=== PATIENT | male | born 1985 | race African-American/Black ===

== ENCOUNTER 2017-01-21 15:48 | Emergency (ER) | payer OTHER ==
[~2017-01-21] VITALS: Ht 180.3 cm; Wt 93.1 kg
[2017-01-21 17:19] VITALS: BP 142/76; PULSE 82; RESP 18; TEMP 98.6; O2SAT 98
--- NOTE | 2017-01-21 17:24 | PD ---
HPI Chief Complaint: Psychiatric Symptoms Time Seen by Provider: 17:15 Travel History International Travel<30 days: No Contact w/Intl Traveler<30days: No Traveled to known affect area: No History of Present Illness HPI 32-year-old male with history of schizophrenia presents for evaluation under Hutchins act. For the past 2 years he has been having paranoid delusions, auditory hallucinations, thoughts of suicide. He reports that the voices tell him to kill himself. He has feelings that people are following him. He was thinking about stabbing himself and the friend called the police and he was placed under Hutchins act. He has no medical complaints at this time. Denies any drug or alcohol use. [facility] Social History Alcohol Use: No Tobacco Use: No Allergies-Medications (Allergen,Severity, Reaction): Coded Allergies: No Known Allergies (Unverified , 01/21/17) Review of Systems Except as stated in HPI: all other systems reviewed are Neg Physical Exam Narrative GENERAL: Disheveled male in no acute distress, answering questions appropriately. SKIN: Warm and dry. HEAD: Atraumatic. Normocephalic. EYES: Pupils equal and round. No scleral icterus. No injection or drainage. ENT: No nasal bleeding or discharge. Mucous membranes pink and moist. NECK: Trachea midline. No JVD. CARDIOVASCULAR: Regular rate and rhythm. No murmur appreciated. RESPIRATORY: No accessory muscle use. Clear to auscultation. Breath sounds equal bilaterally. GASTROINTESTINAL: Abdomen soft, non-tender, nondistended. Hepatic and splenic margins not palpable. MUSCULOSKELETAL: No obvious deformities. No edema NEUROLOGICAL: Awake and alert. No obvious cranial nerve deficits. Motor grossly within normal limits. Normal speech. PSYCHIATRIC: Appropriate mood and affect; insight and judgment normal. Data Data Last Documented VS Vital Signs Date Time Temp Pulse Resp B/P Pulse Ox O2 Delivery O2 Flow Rate FiO2 01/21/17 17:22 77 18 01/21/17 17:19 98.6 142/76 98 Orders Complete Blood Count With Diff (01/21/17 17:21) Comprehensive Metabolic Panel (01/21/17 17:21) Psych Screen (01/21/17 17:21) Drug Screen, Random Urine (01/21/17 17:21) Alcohol (Ethanol) (01/21/17 17:21) Salicylates (Aspirin) (01/21/17 17:21) Tylenol (Acetaminophen) (01/21/17 17:21) Labs Laboratory Tests Test 01/21/17 17:34 White Blood Count 6.7 TH/MM3 Red Blood Count 4.81 MIL/MM3 Hemoglobin 14.2 GM/DL Hematocrit 43.8 % Mean Corpuscular Volume 91.2 FL Mean Corpuscular Hemoglobin 29.5 PG Mean Corpuscular Hemoglobin 32.3 % Concent Red Cell Distribution Width 13.8 % Platelet Count 199 TH/MM3 Mean Platelet Volume 8.0 FL Neutrophils (%) (Auto) 69.2 % Lymphocytes (%) (Auto) 14.8 % Monocytes (%) (Auto) 13.6 % Eosinophils (%) (Auto) 2.1 % Basophils (%) (Auto) 0.3 % Neutrophils # (Auto) 4.7 TH/MM3 Lymphocytes # (Auto) 1.0 TH/MM3 Monocytes # (Auto) 0.9 TH/MM3 Eosinophils # (Auto) 0.1 TH/MM3 Basophils # (Auto) 0.0 TH/MM3 CBC Comment DIFF FINAL Differential Comment Sodium Level 140 MEQ/L Potassium Level 4.0 MEQ/L Chloride Level 103 MEQ/L Carbon Dioxide Level 28.5 MEQ/L Anion Gap 9 MEQ/L Blood Urea Nitrogen 10 MG/DL Creatinine 0.84 MG/DL Estimat Glomerular Filtration 127 ML/MIN Rate Random Glucose 73 MG/DL Calcium Level 9.2 MG/DL Total Bilirubin 0.7 MG/DL Aspartate Amino Transf 23 U/L (AST/SGOT) Alanine Aminotransferase 37 U/L (ALT/SGPT) Alkaline Phosphatase 81 U/L Total Protein 7.5 GM/DL Albumin 4.0 GM/DL Salicylates Level 1.9 MG/DL Urine Opiates Screen NEG Acetaminophen Level LESS THAN 2.0 MCG/ML Urine Barbiturates Screen NEG Urine Amphetamines Screen NEG Urine Benzodiazepines Screen NEG Urine Cocaine Screen NEG Urine Cannabinoids Screen NEG Ethyl Alcohol Level LESS THAN 3 MG/DL MDM Medical Decision Making Medical Screen Exam Complete: Yes Emergency Medical Condition: Yes Medical Record Reviewed: Yes Differential Diagnosis Schizophrenia, schizoaffective disorder, acute psychosis, substance induced mood disorder, major depressive disorder, medication noncompliance Narrative Course 32 year old male with history of schizophrenia presents under Hutchins act for evaluation of suicidal ideation, paranoia, auditory hallucinations. Mental health screening discussed with the patient. Psychiatric screen ordered. Lab work is unremarkable. Medically cleared for psychiatric disposition. Diagnosis Primary Impression: Schizophrenia Qualified Code: F20.9 - Schizophrenia, unspecified type Matt Colvin Jan 21, 2017 17:24
[2017-01-21 18:09] LABS: AUTOMATED NEUTROPHIL # 4.7 TH/MM3 (1.8-7.7); BASOPHIL % 0.3 % (0.0-2.0); EOSINOPHIL # 0.1 TH/MM3 (0-0.4); EOSINOPHIL % 2.1 % (0.0-4.0); HEMATOCRIT 43.8 % (39.0-51.0); HEMO FLAGS DIFF FINAL; LYMPH % 14.8 % (9.0-44.0); MEAN CELL VOLUME 91.2 FL (80.0-100.0); MEAN CORPUSCULAR HEMOGLOBIN 29.5 PG (27.0-34.0); MEAN CORPUSCULAR HGB CONC 32.3 % (32.0-36.0); MONO % 13.6 % (0.0-8.0); NEUT % 69.2 % (16.0-70.0); PLATELET COUNT 199 TH/MM3 (150-450); RED BLOOD COUNT 4.81 MIL/MM3 (4.50-5.90); RED CELL DISTRIBUTION WIDTH 13.8 % (11.6-17.2); WHITE BLOOD COUNT 6.7 TH/MM3 (4.0-11.0)
[2017-01-21 18:15] LABS: AMPHETAMINE, URINE NEG (NEG); BARBITURATES, URINE NEG (NEG); COCAINE, URINE NEG (NEG)
[2017-01-21 18:30] LABS: ALT (GPT) 37 U/L (12-78); ANION GAP 9 MEQ/L (5-15); AST (GOT) 23 U/L (15-37); BICARBONATE 28.5 MEQ/L (21.0-32.0); BLOOD UREA NITROGEN 10 MG/DL (7-18); CHLORIDE 103 MEQ/L (98-107); GLOMERULAR FILTRATION RATE 127 ML/MIN (>89); SODIUM (NA) 140 MEQ/L (136-145)
[2017-01-21 18:32] LABS: ALKALINE PHOSPHATASE 81 U/L (45-117); TOTAL BILIRUBIN ADULT 0.7 MG/DL (0.2-1.0)
[2017-01-21 18:44] LABS: ACETAMINOPHEN LESS THAN 2.0 MCG/ML (10.0-30.0)
[2017-01-21 20:01] VITALS: BP 138/95; PULSE 89; RESP 19; O2SAT 94
[2017-01-21 22:15] VITALS: BP 128/69; PULSE 76; RESP 17; O2SAT 98
[2017-01-22 02:00] VITALS: BP 110/67; PULSE 65; RESP 16; O2SAT 98
[2017-01-22 06:19] VITALS: BP 105/57; PULSE 64; RESP 18; O2SAT 99
[2017-01-22] MEDS ORDERED: DIVA250ER PO (06:34)
[2017-01-22] MEDS ORDERED: RISP.25 PO (06:34)
[2017-01-22 10:40] VITALS: BP 137/73; PULSE 69; RESP 18; O2SAT 98
[2017-01-22 14:54] VITALS: BP 111/58; PULSE 70; RESP 18; O2SAT 98
[2017-01-22 18:33] VITALS: BP 138/70; PULSE 86; RESP 16; O2SAT 97
[2017-01-22 22:03] VITALS: BP 117/59; PULSE 66; RESP 18; TEMP 97.9; O2SAT 99
[2017-01-23 01:40] VITALS: BP 126/66; PULSE 64; RESP 18; TEMP 98.6; O2SAT 98
[2017-01-23 05:39] VITALS: BP 106/56; PULSE 65; RESP 17; TEMP 98; O2SAT 98
[2017-01-23 10:39] VITALS: BP 96/50; PULSE 68; RESP 16; O2SAT 97
--- NOTE | 2017-01-23 13:29 | PD ---
History of Present Illness Chief Complaint: Psychiatric Symptoms Time Seen by Provider: 13:15 Travel History International Travel<30 Days: No Contact w/Intl Traveler<30days: No Known affected area: No Legal Status Legal Status: Hutchins Act Hutchins Act Signed By: Stephania Figueroa Hutchins Act Comment: 01/21/2017 3:20 PM History of Present Illness: History of Present Illness HPI 32-year-old male with a reported history of schizophrenia who presents under Hutchins act initiated by PAT. The report alleges that he was in a park threatening to end his life with a knife. He recently lost his son and is having a hard time coping. He was not injured and no sharp object was found near him. The report also states that he has been BA to [facility] as well [facility]. ED documentation is reviewed . He reported a 2 year hx of paranoid delusions, auditory hallucinations, thoughts of suicide. He reports that the voices tell him to kill himself but he has never acted upon these voices. He has feelings that people are following him. EMR reviewed. No previous contact with [facility]. Negative toxicology. Patient was monitored in J pod and he presented no behavioral concerns and no suicidality. Patient is alert and oriented, calm and cooperative. Speech is clear and logical. he does not appear to be internally preoccupied. He continues to report that he feels suicidal and unsafe and that he needs treatment for his mental health and wants to be started on psychiatric medication. He moved to [place] 5 months ago and since his arrival he has been to [facility] where he reports he was prescribed Depakote and Risperdal but did not take the medication after discharge. He has also been admitted to a substance abuse treatment facility in [facility] but denies that he has a substance use problem . He then went to [facility] and was hospitalized at [facility] and discharged on december 26. Once again he tells me that he stopped the medication after discharge because he felt he didn't need to take any medication. He reports one previous suicide attempt by attempting to hang himself last year. He tells me that he came to [place] to seek treatment because he was embarrassed to get treatment in [place]. he also tells me that he would like to return to [place] and that he is expecting his mother to send him money for a ticket on Saturday when she gets paid. He also wants to go back to [place]. His mother is Jannet at [phone].. I have called her to obtain collateral information . She reports that for the past 1 and half year after the of his son and his divorce from his he has been drinking significant amounts and lashing out at people. He has been involved in counseling court mandated to engage in anger management treatment. She is not aware of any psychiatric diagnosis . [facility] Past Medical History Psychiatric: Yes (SCHIZOPHRENIA) Schizophrenia: Yes Past Surgical History Surgical History: No Previous Surgery Psychiatric History Psychiatric History Hx Psychiatric Treatment: Patied with stated history of paranoid schizophrenia. Past with past stated inpatient admissions within the past 4 months: [facility] in [place], 7 days; [facility] 17 days; [facility] 11-12 days. History of Inpatient Treatment: Yes Guns or firearms in home: No Social History Homeless male from [place]. Hx Alcohol Use: No Hx Tobacco Use: No Hx Substance Use: Yes Substance Use Type: Alcohol, Nicotine/Cigarettes Hx of Substance Use Treatment: Yes Family Psychiatric History unknown Allergies-Medications (Allergen,Severity, Reaction): Coded Allergies: No Known Allergies (Unverified , 01/21/17) Reported Meds & Prescriptions Reported Meds & Active Scripts Active Reported Depakote ER (Divalproex Sodium) 250 Mg Ileana Unknown Dose PO DAILY Risperdal (Risperidone) 0.25 Mg Tab Unknown Dose PO DAILY Review of Systems Except as stated in HPI: all other systems reviewed are Neg Exam Alert: Yes [place]: Person (ox4) Mood: Calm Affect: Restricted Speech: Clear, Logical Eye Contact: Normal Memory Intact: Comment (no impairmetn) Hallucinations: Auditory (reports command type to hurt himslef.) Delusions: Yes Delusion Type: Paranoid Suicidal: Ideation (to cut himslef or swin in the ocean) Homicidal: Ideation (negative) Insight/Judgement poor. Poor MDM Medical Decision Making Medical Record Reviewed: Yes Assessment/Plan 32 year old male with a reported hx of schizophrenia who is from [place] , having travelled to [place] to receive psychiatric treatment treatment who is reporting suicidal thoughts, command hallucinations and paranoia. He has been treated and released from 3 different hospitals int he past 4 months and has failed to follow up with treatment. Since we have not had contact with this patient in the past and out of abundance of caution he will be placed on SMA list for treatment. There is no appropriate bed for this patient at [facility] at this time. I will start him on Risperdal which he tells me he has taken in the past as well. he is hopeful that he could return to [place] once his mother can send him a bus ticket next week. Orders Diet Regular Basic (01/22/17 Dinner) Diet Regular Basic (01/23/17 Breakfast) Diet Regular Basic (01/23/17 Lunch) Diet Regular Basic (01/23/17 Dinner) Results Vital Signs Date Time Temp Pulse Resp B/P Pulse Ox O2 Delivery O2 Flow Rate FiO2 01/23/17 10:39 68 16 96/50 97 Room Air 01/23/17 05:39 98.0 65 17 106/56 98 Room Air 01/23/17 01:40 98.6 64 18 126/66 98 Room Air 01/22/17 22:03 97.9 66 18 117/59 99 Room Air 01/22/17 18:33 86 16 138/70 97 Room Air 01/22/17 14:54 70 18 111/58 98 Room Air Diagnosis Primary Impression: Schizophrenia Additional Impression: Substance induced mood disorder Problem Qualifiers Primary Impression: Schizophrenia Qualified Code: F20.9 - Schizophrenia, unspecified type Renetta Cohen Jan 23, 2017 13:29
[2017-01-23] MEDS: risperiDONE 1 MG TAB PO ONE ×2 (13:30→13:48)
[2017-01-23 14:00] VITALS: BP_SYST 129; BP_SYST 98; BP_DIAS 54; BP_DIAS 76; PULSE 86; RESP 18; TEMP 97.7; O2SAT 94; O2SAT 96
[2017-01-23 18:16] VITALS: BP 106/55; PULSE 71; RESP 18; O2SAT 94
[2017-01-23 22:08] VITALS: BP 102/59; PULSE 65; RESP 18; TEMP 98.6; O2SAT 98
[2017-01-24 02:23] VITALS: BP 135/75; PULSE 65; RESP 18; TEMP 97.8; O2SAT 97
[2017-01-24 06:29] VITALS: BP 120/72; PULSE 71; RESP 18; TEMP 97.9; O2SAT 100
--- NOTE | 2017-01-24 09:07 | HHI.PYPN ---
Subjective Remarks " Can I stay here until my mother sends me a bus ticket tomorrow? Can I get a shuttle to go to the [facility]? #2 year old male who presented to EDF after he contacted the police to inform them that he was having suicidal thoughts. The patient once here in ED reported that he was experiencing auditory hallucinations, paranoia as well as cont suicidal ideation. he nevertheless;ess did not presnet indiction that he was experiencing psychosis , tan or any suicidality. He has not presented any behavioral concerns and does not appear internally stimulated. . This play writer observed patient last night and he was observed interacting appropriately with other female patients. He did not appear to be responding to internal stimuli. Making his needs known appropriately . For example requesting a different tray for lunch as he reported he was allergic to fish. Review of Systems Except as stated in HPI: all other systems reviewed are Neg Objective Alert: Yes [place]: Person (ox4) Mood: Calm Affect: Restricted Memory Intact: Comment (no impairmetn) Hallucinations: Auditory (None at present) Delusions: No Delusion Type: Paranoid, Other (does not appear to be) Suicidal: Ideation (negative) Homicidal: Ideation (negative) Insight/Judgment Poor. not impaired. Vitals/IOs Vital Signs Date Time Temp Pulse Resp B/P Pulse Ox O2 Delivery O2 Flow Rate FiO2 01/24/17 06:29 97.9 71 18 120/72 100 01/24/17 02:23 Room Air Assessment & Plan Problem List: (1) Malingering ICD Code: Z76.5 (2) Substance induced mood disorder ICD Code: F19.94 Assessment & Plan At this time this patient is deemed not appropriate to remain on BA status. he has been monitored for extended period of time and has not presented any signs of psychosis. When a discussion is initiated regarding discharge he requests s several services such as a shuttle service. He appears to be malingering for [facility]. At this time he will be discharged to [facility]. He will be provided with the [facility] information if he wishes but patient is stating he will be returning to [place] tomorrow once his mother sends him a bus ticket. Justification for Cont. Inpt. Does not meet criteria for BA or inpatient treatment Discharge Planning Will be releasing him to return to [place] Renetta Cohen Jan 24, 2017 09:07
[2017-01-24 09:40] VITALS: BP 120/72; TEMP 97.9
== END 2017-01-24 09:45 | disposition home or self-care (01) ==
LOC: NEDAMB 15:48 → NEPJ 01-24 09:45
DX: F20.0 Paranoid schizophrenia (principal); F39 Unspecified mood [affective] disorder; R44.0 Auditory hallucinations; Z59.0 Homelessness
CPT/HCPCS: 80053; 80307; 85025; 99284